=== PATIENT | male | born 1970 | race Caucasian/White ===

== ENCOUNTER 2017-01-05 10:03 | Emergency (ER) | payer BC ==
[~2017-01-05 10:03] MED LIST: FLOMAX PO; LEVAQUIN 5500 MG/TA1 PO; NO HOME MEDICATIONS; OXYCODONE/APAP1 TA4 PO; PERCOCET 325 MG1 TA2 PO; ZOFRAN ODT8 M1 PO
[2017-01-05] MEDS ORDERED: METOPROLOL SUCC50 M1 PO (12:41)
[2017-01-05] MEDS ORDERED: NORCO 325 MG-51 TA1 PO (12:41)
== END 2017-01-05 12:46 | disposition home or self-care (01) ==
LOC: ED 10:03
DX: R51 Headache (principal); M54.2 Cervicalgia; I10 Essential (primary) hypertension; F17.220 Nicotine dependence, chewing tobacco, uncomplicated
CPT/HCPCS: J1200; J1885

== ENCOUNTER → 2017-01-06 | Outpatient (CLI) | payer BC ==
[~2017-01-06] MED LIST changes: +METOPROLOL SUCC50 M1 PO; +NORCO 325 MG-51 TA1 PO
== END ==
LOC: RAD 14:39
DX: I10 Essential (primary) hypertension (principal)

== ENCOUNTER → 2017-02-27 | Outpatient (CLI) | payer BC ==
[2017-01-05 12:50] VITALS: BP 144/101
== END ==
LOC: LAB 09:27
DX: M54.2 Cervicalgia (principal)

== ENCOUNTER → 2019-05-24 | Outpatient (CLI) | payer BC ==
[2017-01-05 12:50] VITALS: BP 144/101
[2019-05-24 16:30] LABS: ALBUMIN 4.4 g/dL (3.5-5.0); POTASSIUM 4.3 mmol/L (3.5-5.1)
[2019-05-24 16:31] LABS: CALCIUM 9.7 mg/dL (8.3-10.5)
[2019-05-24 16:33] LABS: TOTAL PROTEIN 8.4 g/dL (6.4-8.3)
[2019-05-24 16:34] LABS: TOTAL BILIRUBIN 0.5 mg/dL (0.2-1.2)
== END ==
LOC: LAB 15:30
PROVIDERS: Nurse Practitioner
DX: M79.89 Other specified soft tissue disorders (principal)